=== PATIENT | female | born 1985 | race Caucasian/White ===

== ENCOUNTER 2017-02-27 15:22 | Emergency (ER) | payer SELFPAY ==
[~2017-02-27] VITALS: Ht 162.6 cm; Wt 70.8 kg
[2017-02-27 15:25] VITALS: BP 144/96
[2017-02-27] MEDS ORDERED: LIDOCAINE 1%-EPI 1:100K, 20ML SQ ONE (16:00)
[2017-02-27] MEDS ORDERED: OXYcodone/APAP 5/325MG TABLET PO ONE (16:00)
[2017-02-27] MEDS ORDERED: OXYcodone/APAP 5/325MG TABLET ONE (16:08)
== END 2017-02-27 17:00 | disposition home or self-care (01) ==
LOC: ED 16:06
DX: L02.611 Cutaneous abscess of right foot (principal); F15.10 Other stimulant abuse, uncomplicated
CPT/HCPCS: 10060

== ENCOUNTER 2017-05-22 12:18 | Emergency (ER) | payer SELFPAY ==
[~2017-05-22] VITALS: Ht 162.6 cm; Wt 75.0 kg
[2017-05-22] MEDS ORDERED: VANCOMYCIN PER PHARMACY IV ONE (13:00)
[2017-05-22] MEDS ORDERED: ONDANSETRON 2MG/ML, 2ML IVPush ONE (13:00)
[2017-05-22] MEDS ORDERED: SODIUM CHLORIDE 0.9% 1,000ML IVBOLUS ONE (13:00)
[2017-05-22] MEDS ORDERED: PIPERACILLIN/TAZO 3.375 GM in SODIUM CHLORIDE 0.9% 50 ML IVPB ONE (13:00)
[2017-05-22] MEDS ORDERED: SODIUM CHLORIDE FLUSH 10ML SYR IVF ONE (13:00)
[2017-05-22] MEDS ORDERED: PHARMACOKINETIC CONSULTATION MC ONE (13:00)
[2017-05-22] MEDS ORDERED: VANCOMYCIN 1,600 MG in SODIUM CHLORIDE 0.9% 250 ML IV ONE (13:00)
[2017-05-22] MEDS ORDERED: PIPERACILLIN/TAZO/PMX 3.375GM 50 ML ONE (13:03)
[2017-05-22] MEDS ORDERED: MORPHINE SULFATE 4 MG/ML, 1ML ONE (13:03)
[2017-05-22] MEDS ORDERED: ONDANSETRON 2MG/ML, 2ML ONE (13:04)
[2017-05-22] MEDS ORDERED: DIPHENHYDRAMINE 50 MG/ML, 1ML IVPush ONE (13:30)
[2017-05-22] MEDS ORDERED: ACETAMINOPHEN 500 MG TABLET PO ONE (13:30)
[2017-05-22] MEDS ORDERED: morphine SULFATE 10 MG/ML, 1ML IVPush ONE (13:30)
[2017-05-22] MEDS ORDERED: PIPERACILLIN/TAZO/PMX 3.375GM 50 ML IVPB ONE (13:30)
[2017-05-22 13:43] LABS: BLOOD UREA NITROGEN 8 mg/dL (7-18)
[2017-05-22] MEDS ORDERED: DIPHENHYDRAMINE 50 MG/ML, 1ML ONE (15:22)
[2017-05-22] MEDS ORDERED: ACETAMINOPHEN 500 MG TABLET ONE (15:23)
[2017-05-22] MEDS ORDERED: SULFAMETH./TRIMETHOPRIM DS 800MG/160MG TABLET PO ONE (15:30)
[2017-05-22] MEDS ORDERED: SULFAMETH./TRIMETHOPRIM DS 800MG/160MG TABLET ONE (15:40)
[2017-05-22 16:31] VITALS: BP 142/86
== END 2017-05-22 16:34 | disposition home or self-care (01) ==
LOC: ED 13:46
DX: L02.511 Cutaneous abscess of right hand (principal); L03.113 Cellulitis of right upper limb; F11.10 Opioid abuse, uncomplicated
CPT/HCPCS: 36415; 73130; 80048; 82040; 83605; 84145; 85025; 87040; 96365; 96366; 96368; 96375; 99285; J1200; J2270; J2543; J3370; J7030; J7050

== ENCOUNTER 2018-11-04 00:36 | Emergency (ER) | payer SELFPAY ==
[~2018-11-04] VITALS: Ht 162.6 cm; Wt 77.3 kg
[2018-11-04 00:42] VITALS: BP 154/98
== END 2018-11-04 00:55 | disposition left against medical advice (07) ==
LOC: ED 00:50
DX: Z53.21 Procedure and treatment not carried out due to patient leaving prior to being seen by health care provider (principal)